=== PATIENT | male | born 1980 | race Two or more races ===

== ENCOUNTER 2020-02-21 00:17 | Emergency (ER) | payer MEDICAID, MEDICARE, OTHER ==
[~2020-02-21] VITALS: Ht 172.7 cm; Wt 81.6 kg
--- NOTE | 2020-02-21 00:25 | NUR ---
BIB EMS C/O "SI WITH PLAN TO DIVE IN FRONT OF A MOVING CAR". PT WAS PLACED IN BED 13. GOWNED UP AND ALL BELONGINGS TAKEN AWAY AND SAVED IN A LOCKED FOR SAFETY. VSS. PT IS PLACED ON A MONITOR AND UNDER CLOSE SUPERVISION OF A SITTER. SI PRECAUTION IN PLACE.
[2020-02-21 00:43] LABS: BASOPHILS % (AUTO) 0.3 % (0.0-2.0); EOSINOPHILS % (AUTO) 3.2 % (0.0-6.0); HEMATOCRIT 43 % (39-51); HEMOGLOBIN 14.7 g/dL (13.5-17.5); LYMPHOCYTES % (AUTO) 27.5 % (20.0-44.0); MEAN CORPUSCULAR HGB CONC 34 g/dl (31.0-36.0); MEAN CORPUSCULAR VOLUME 87 fL (80-96); MONOCYTES # (AUTO) 1.2 /CMM (0.1-1.30); MONOCYTES % (AUTO) 11.3 % (2.0-12.0); NEUTROPHILS # (AUTO) 6.2 /CMM (1.8-8.9); NEUTROPHILS % (AUTO) 57.7 % (43.0-81.0); PLATELET COUNT (AUTO) 255 /CMM (150-450); RED BLOOD CELL COUNT(AUTO) 4.93 MIL/uL (4.5-6.0); WHITE BLOOD COUNT (AUTO) 10.8 K/uL (4.3-11.0)
[2020-02-21 00:45] LABS: APPEARANCE,URINE Clear (CLEAR); BILIRUBIN,URINE SMALL (NEGATIVE); BLOOD, URINE Negative Ery/uL (NEGATIVE); COLOR,URINE Yellow (YELLOW); KETONES,URINE Negative (NEGATIVE); LEUKOCYTE ESTERASE ,URINE Negative (NEGATIVE); NITRITE, URINE Negative (NEGATIVE); PH,URINE 6.5 (5.0-8.0); PROTEIN,URINE 30 mg/dl (NEGATIVE); UGLUCOSE Negative (NEGATIVE); UROBILINOGEN,URINE >=8.0 EU/dL (0.2)
[2020-02-21 01:00] LABS: ALANINE AMINOTRANSFERASE 29 U/L (12-78); ALBUMIN 3.3 g/dL (3.4-5.0); ALCOHOL, BLOOD < 3 mg/dL (0-0); ALKALINE PHOSPHATASE 77 U/L (46-116); ASPARTATE AMINOTRANSFERASE 19 U/L (15-37); BILIRUBIN,DIRECT 0.2 mg/dL (0.0-0.2); BILIRUBIN,TOTAL 0.7 mg/dL (0.2-1.0); CALCIUM, SERUM 8.7 mg/dL (8.5-10.1); CARBON DIOXIDE 31 mmol/L (21-32); CHLORIDE 98 mmol/L (98-107); CREATININE 1.2 mg/dL (0.6-1.3); GLUCOSE 86 mg/dL (74-106); SODIUM SERUM 134 mmol/L (136-145); TOTAL PROTEIN, SERUM 6.9 g/dL (6.4-8.2); UREA NITROGEN, BLOOD 17 mg/dL (7-18)
[2020-02-21 01:07] LABS: POTASSIUM 2.8 mmol/L (3.5-5.1); SALICYLATE 2.7 mg/dL (2.8-20.0)
[2020-02-21 01:08] LABS: ACETAMINOPHEN < 2 ug/ml (10-30)
[2020-02-21] MEDS ORDERED: POTASSIUM CHLORIDE 20 MEQ TAB.PRT.SR PO ONE ×4 (01:23→07:00)
[2020-02-21 01:46] LABS: RBC,URINE 0-2 /HPF (0-2)
[2020-02-21 01:47] LABS: BACTERIA,URINE Few /HPF (None Seen); MUCUS,URINE Moderate /LPF (None Seen); SQUAMOUS EPITHELIAL CELL,UR Many /HPF (None Seen)
[2020-02-21 05:42] LABS: CALCIUM, SERUM 8.4 mg/dL (8.5-10.1); CREATININE 1.1 mg/dL (0.6-1.3)
[2020-02-21 05:55] LABS: POTASSIUM 2.7 mmol/L (3.5-5.1)
--- NOTE | 2020-02-21 07:39 | NUR ---
assume pt care. resting in bed. arousable. stable vitals. still verbalizing suicidal intent. sitter at bedside. will continue to monitor.
--- NOTE | 2020-02-21 07:44 | NUR ---
MOVE SHEET SUBMITTED FOR ER OBSERVATION.
[2020-02-21 08:24] LABS: CALCIUM, SERUM 8.6 mg/dL (8.5-10.1); POTASSIUM 3.6 mmol/L (3.5-5.1)
--- NOTE | 2020-02-21 08:49 | NUR ---
Social service consult requested for voluntary psychiatric admission. Per MD notes, pt is a 39-year-old male brought by EMS complains of suicidal ideation with a plan to drive without moving car. He denies fevers chills nausea vomiting. Denies homicidal ideation. Denies any auditory visual hallucinations. SR. STRATEGIC SOURCING MANAGER contacted Homar at [facility] intake and initiated voluntary psychiatric hospitalization. Clinicals faxed to [facility] intake dept.
--- NOTE | 2020-02-21 10:09 | NUR ---
SW received a callback from Joanne at [facility] intake stating pt has been accepted at [facility] and they will call the ED shortly to provide accepting doctor and report number.
--- NOTE | 2020-02-21 10:22 | NUR ---
TRANSFER INFO ACCEPTED BY DR. FRAZIER AND BRADEN # FOR REPORT: [phone] PER [facility] INTAKESEND THE PT AFTER 11AM FOR BED AVAILABILITY.
--- NOTE | 2020-02-21 10:53 | NUR ---
REPORT GIVEN TO WAN LANG OF [facility] FOR [facility].
--- NOTE | 2020-02-21 10:58 | NUR ---
CALLED [facility] [phone] ETA 1330 PER GRACIELA
--- NOTE | 2020-02-21 13:29 | NUR ---
CALLED [facility] [phone] TO CANCEL PT GOING TO COURT.
--- NOTE | 2020-02-21 13:32 | NUR ---
PT STATING HE IS NOT SUICIDAL, NEEDS TO LEAVE BECAUSE HE HAS A COURT DATE TOMORROW. DR ISIDRO BACK AT BEDSIDE FOR RE EVALUATION. MEDICALLY CLEARED FOR DISCHARGE. PROVIDED W/ RESOURCES AND BUS PASS.
[2020-02-21 13:36] VITALS: BP 132/60
== END 2020-02-21 13:36 | disposition home or self-care (01) ==
LOC: ER 00:19 → OBSER 07:45 → UNDOADMOB 07:45 → ER 13:36
DX: R45.851 Suicidal ideations (principal); E87.6 Hypokalemia
CPT/HCPCS: 36415; 80048 ×3; 80076; 80305; 80307; 80329; 81001; 85025; 87086; 99285; G0480; 81000-TC